=== PATIENT | male | born 2000 | race Caucasian/White ===

== ENCOUNTER 2022-04-04 19:56 | Emergency (ER) | payer OTHER, SELFPAY ==
[2022-04-04 20:13] VITALS: BP 159/83; PULSE 79; TEMP 36.8; O2SAT 98; BMI 24.4
--- NOTE | 2022-04-04 20:44 | ED_ITS ---
HPI - General Adult General Chief complaint: Chest Pain Stated complaint: Heart Palpatations Time Seen by Provider: 04/04/22 20:22 History of Present Illness HPI narrative: @1 yo yound man here with c/o over the last approximately week and a half has been getting episodes of a very hard heartbeats and rapid heart rate. Can feel little bit short of breath with this occurring and then pain in the chest with these times. Not reporting lightheadedness. Can occur at rest. No cough or c old sxs. no fever. no dyspeptic sxs. has had times where legs go numb. 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 accompanied by his father; currently living with parents. Does smoke cigarettes and marijuana. no dysuria but has noticed bad smelling urine lately. no foaming. Of concern is that josafat had cardiovascular disease with MT and stenting but sounds as though had some dysrhythmia prompting intervention and Ty has been told that he is to have rhythm evaluation by the time he is 21 - 24? Related Data Home Medications Medication Instructions Recorded Confirmed albuterol sulfate 90 mcg/actuation 2 puff inhalation Q4-6H PRN 04/06/22 04/06/22 aerosol inhaler Previous Rx's Medication Instructions Recorded escitalopram oxalate 10 mg tablet 10 mg PO QDAY #30 tabs 04/06/22 Allergies Allergy/AdvReac Type Severity Reaction Status Date / Time prednisone Allergy Unknown Verified 04/06/22 10:06 Review of Systems Status of ROS: Reports: 10 or more systems reviewed and unremarkable except as noted in History and below PFSH PFSH Family History (Updated 04/05/22 @ 16:18 by Radha Magana) Maternal Grandmother Breast cancer Diabetes Maternal Grandfather Stroke Heart disease Other Colon cancer Social History (Updated 04/06/22 @ 10:12 by Kwesi Glasgow MD) Narrative: Smoker 4-5 cigarettes per day Marijuana use Alcohol ingestion, 1-4 drinks/weeks Family History Problems: Family history of heart disease Maternal grandfather. Family history of CVA Maternal great grandfather, at age 52. Family history of colon cancer Grandmother, at age 70. Family history of breast cancer Grandmother. Family history of diabetes mellitus Grandmother, at age 20. Smoking Status: Current every day smoker Do you use any of these nicotine containing products: None Second hand tobacco smoke exposure: No How often do you have a drink containing alcohol: never How often do you have six or more drinks on one occasion: Never AUDIT-C Alcohol total score: 0 Non-prescribed substance use: marijuana (any form) Exam Narrative: Exam Narrative: Tall. Pleasant. Calm. Subtly anxious. Little flushed in his face. Well nourished. Skin is warm and dry. Well perfused peripherally. No extremity edema. Lungs are clear Neck supple without LA Oropharynx a little hyperemic consistent with cigarette smoking Cranial nerves two through 12 are intact. Cardiovascular with regular rate and rhythm, no murmur rub or john. normal PMI abdomen is flat soft and nontender. Const: Vital Signs, click to edit/add: Vital Signs - 24 hr 04/04/22 20:13 04/04/22 20:51 04/04/22 21:03 Temperature 98.3 F Pulse Rate [Left P ulse Oximeter] 79 76 Respiratory Rate 12 Blood Pressure [Ri ght Upper Arm] 159/83 H 142/88 H Pulse Oximetry 98 98 98 Oxygen Delivery Me thod Room Air Room Air 04/04/22 22:29 Temperature Pulse Rate [Left P ulse Oximeter] 72 Respiratory Rate 14 Blood Pressure [Ri ght Upper Arm] 142/88 H Pulse Oximetry 97 Oxygen Delivery Me thod Room Air Documenting provider has reviewed patient's vital signs: yes Course Vital Signs Vital signs: Initial Vital Signs Temperature 98.3 F 04/04/22 20:13 Temperature Source Temporal Artery Scan 04/04/22 20:13 Pulse Rate 79 04/04/22 20:13 Blood Pressure 159/83 H 04/04/22 20:13 Blood Pressure Mean 108 04/04/22 20:13 Blood Pressure Position Supine 04/04/22 20:13 Pulse Oximetry 98 04/04/22 20:13 Oxygen Delivery Method 04/04/22 20:13 Vital Signs Temperature 98.3 F 04/04/22 20:13 Pulse Rate 79 04/04/22 20:13 Blood Pressure 159/83 H 04/04/22 20:13 Pulse Oximetry 98 04/04/22 20:13 Oxygen Delivery Method 04/04/22 20:13 Temperature 98.3 F 04/04/22 20:13 Pulse Rate 72 04/04/22 22:29 Respiratory Rate 14 04/04/22 22:29 Blood Pressure 142/88 H 04/04/22 22:29 Pulse Oximetry 97 04/04/22 22:29 Oxygen Delivery Method 04/04/22 22:29 Medical Decision Making MDM Narrative Medical decision making narrative: I would suspect palpitations plus or minus exacerbation from anxiety. Can certainly initiate laboratory workout and monitor. I would anticipate placement of Holter monitor otherwise. Chest x-ray for rough evaluation of cardiac silhouette. cxr reviewed by me wnl labs normal as anticipated -- ua clear and utox pos for thc as expected. holter monitor placed by radiology. Lab Data Lab results reviewed: Yes I reviewed the patient's lab results Labs: Lab Results 04/04/22 04/04/22 04/04/22 Range/Units 20:47 20:47 20:47 WBC 6.02 (4.50-11.00) K/uL RBC 5.60 (4.30-5.90) m/uL Hgb 16.7 (13.5-17.5) gm/dL Hct 48.8 (37.0-53.0) % MCV 87 (80-100) fL MCH 30 (26-34) pg MCHC 34 (32-36) gm/dL RDW Coeff of Edwin 11.9 (11.5-15.5) % Plt Count 227 (140-440) K/uL Neut % (Auto) 56.0 (42.0-72.0) % Lymph % (Auto) 26.9 (20-44) % [place] % (Auto) 12.5 H (0.0-11.0) % Eos % (Auto) 3.5 (0.0-7.0) % Baso % (Auto) 0.8 (0.0-3.0) % Neut # (Auto) 3.37 (1.7-7.0) K/uL Lymph # (Auto) 1.62 (0.90-2.90) K/uL Hendry # (Auto) 0.80 (0.00-0.90) K/UL Eos # (Auto) 0.21 (0.00-0.50) K/uL Baso # (Auto) 0.05 (0.00-0.30) K/uL Abs Immat Gran (auto) 0.02 (0.00-0.30) K/uL Imm/Tot Granulo (auto) 0.3 % Sodium 140 (135-149) mmol/L Potassium 3.9 (3.6-5.1) mmol/L Chloride 105 (96-114) mmol/L Carbon Dioxide 25 (20-32) mmol/L BUN 11 (5-24) mg/dL Creatinine 0.7 (0.5-1.5) mg/dL Estimated Creat Clear 201.19 Estimated GFR 135 ml/min Glucose 107 (60-115) mg/dL Calcium 9.3 (8.4-10.6) mg/dL TSH 1.310 (0.270-4.20) uIU/mL Urine Color (Yellow) Urine Appearance (Clear) Urine pH (5.0-8.5) Ur Specific [place] (1.000-1.030) Urine Protein (Negative) Urine Glucose (UA) (Negative) Urine Ketones (Negative) Urine Blood (Negative) Urine Nitrite (Negative) Urine Bilirubin (Negative) Urine Urobilinogen (0.2-1.0) Ur Leukocyte Esterase (Negative) Urine RBC (0-2) Urine WBC (0-5) Ur Squamous Epith Cells (None-Few) Urine Bacteria (None) Urine Opiates Screen (Negative) Ur Oxycodone Screen (Negative) Urine Methadone Screen (Negative) Ur Propoxyphene Screen (Negative) Ur Barbiturates Screen (Negative) U Tricyclic Antidepress (Negative) Ur Phencyclidine Scrn (Negative) Ur Amphetamines Screen (Negative) U Methamphetamines Scrn (Negative) U Benzodiazepines Scrn (Negative) Urine Cocaine Screen (Negative) U Marijuana (THC) Screen (Negative) Ur Drug Screen Comment 04/04/22 04/04/22 Range/Units 21:35 21:35 WBC (4.50-11.00) K/uL RBC (4.30-5.90) m/uL Hgb (13.5-17.5) gm/dL Hct (37.0-53.0) % MCV (80-100) fL MCH (26-34) pg MCHC (32-36) gm/dL RDW Coeff of Edwin (11.5-15.5) % Plt Count (140-440) K/uL Neut % (Auto) (42.0-72.0) % Lymph % (Auto) (20-44) % Hendry % (Auto) (0.0-11.0) % Eos % (Auto) (0.0-7.0) % Baso % (Auto) (0.0-3.0) % Neut # (Auto) (1.7-7.0) K/uL Lymph # (Auto) (0.90-2.90) K/uL [place] # (Auto) (0.00-0.90) K/UL Eos # (Auto) (0.00-0.50) K/uL Baso # (Auto) (0.00-0.30) K/uL Abs Immat Gran (auto) (0.00-0.30) K/uL Imm/Tot Granulo (auto) % Sodium (135-149) mmol/L Potassium (3.6-5.1) mmol/L Chloride (96-114) mmol/L Carbon Dioxide (20-32) mmol/L BUN (5-24) mg/dL Creatinine (0.5-1.5) mg/dL Estimated Creat Clear Estimated GFR ml/min Glucose (60-115) mg/dL Calcium (8.4-10.6) mg/dL TSH (0.270-4.20) uIU/mL Urine Color Yellow (Yellow) Urine Appearance Clear (Clear) Urine pH 7.0 (5.0-8.5) Ur Specific [place] 1.010 (1.000-1.030) Urine Protein Negative (Negative) Urine Glucose (UA) Negative (Negative) Urine Ketones Negative (Negative) Urine Blood Negative (Negative) Urine Nitrite Negative (Negative) Urine Bilirubin Negative (Negative) Urine Urobilinogen 0.2 (0.2-1.0) Ur Leukocyte Esterase Negative (Negative) Urine RBC 0-2 (0-2) Urine WBC 0-2 (0-5) Ur Squamous Epith Cells None (None-Few) Urine Bacteria None (None) Urine Opiates Screen Negative (Negative) Ur Oxycodone Screen Negative (Negative) Urine Methadone Screen Negative (Negative) Ur Propoxyphene Screen Negative (Negative) Ur Barbiturates Screen Negative (Negative) U Tricyclic Antidepress Negative (Negative) Ur Phencyclidine Scrn Negative (Negative) Ur Amphetamines Screen Negative (Negative) U Methamphetamines Scrn Negative (Negative) U Benzodiazepines Scrn Negative (Negative) Urine Cocaine Screen Negative (Negative) U Marijuana (THC) Screen POSITIVE A* (Negative) Ur Drug Screen Comment See Note ECG Data Attestation: I personally reviewed and interpreted this ECG as follows: (Sinus rhythm rate of 71. No delta wave) Discharge Plan Discharge Clinical Impression: Palpitations Patient Disposition: Home w/ Parent or Adult Condition: Stable Additional Instructions: Be sure to stay well hydrated. I would still try to avoid alcohol at this time as well as stimulants. Do your best to quit smoking. Find a quit xochitl. You might discuss this further with your primary care provider on followup as there are prescriptions available as well. I am not sure what sort of funding is out there for quitplan anymore but see brochure on discharge. Turn in your Holter monitor as scheduled. I would anticipate these results being available in about a week. Can follow this up in primary care. This might be able to be communicated virtually if it is hard to get another [place] ointment. Return for persistent symptoms, increasing shortness of breath, chest pain, lightheadedness. This does not preclude you from doing exercise. A little heart pumping exercise daily does a body good. Prescriptions: No Action albuterol sulfate 90 mcg/actuation HFA aerosol inhaler 2 puff inhalation Q4-6H PRN escitalopram oxalate 10 mg tablet 10 mg PO QDAY Qty: 30 1RF Follow Up/Referrals: Kwesi Glasgow MD [Primary Care Provider] - Stand Alone Forms: Q Holdingst[employer] Info Instructions
[2022-04-04 20:51] VITALS: O2SAT 98
[2022-04-04 20:55] LABS: Basophils Absolute Auto 0.05 K/uL (0.00-0.30); Basophils Percent Auto 0.8 % (0.0-3.0); Eosinophils Absolute Auto 0.21 K/uL (0.00-0.50); Eosinophils Percent Auto 3.5 % (0.0-7.0); Hematocrit 48.8 % (37.0-53.0); Hemoglobin* 16.7 gm/dL (13.5-17.5); Immature Granulocytes Abs Auto 0.02 K/uL (0.00-0.30); Immature Granulocytes Pct Auto 0.3 %; Lymphocytes Absolute Auto 1.62 K/uL (0.90-2.90); Lymphocytes Percent Auto 26.9 % (20-44); Mean Corpuscular HGB Conc 34 gm/dL (32-36); Mean Corpuscular Hemoglobin 30 pg (26-34); Mean Corpuscular Volume 87 fL (80-100); Monocytes Percent Auto 12.5 % (0.0-11.0); Neutrophils Absolute Auto 3.37 K/uL (1.7-7.0); Platelet Count* 227 K/uL (140-440); RDW Coefficient of Variation % 11.9 % (11.5-15.5); White Blood Count* 6.02 K/uL (4.50-11.00)
[2022-04-04 21:03] VITALS: BP 142/88; PULSE 76; RESP 12; O2SAT 98
[2022-04-04 21:04] LABS: Slide Review Reflex No
[2022-04-04 21:05] LABS: Chloride* 105 mmol/L (96-114); Potassium* 3.9 mmol/L (3.6-5.1); Sodium* 140 mmol/L (135-149)
[2022-04-04 21:08] LABS: Carbon Dioxide* 25 mmol/L (20-32); Creatinine* 0.7 mg/dL (0.5-1.5); Est. Creatinine Clearance* 201.19; Estimated Glomerular Filt Rate 135 ml/min
[2022-04-04 21:09] LABS: Blood Urea Nitrogen* 11 mg/dL (5-24); Calcium* 9.3 mg/dL (8.4-10.6); Glucose* 107 mg/dL (60-115)
[2022-04-04 21:46] LABS: Appearance Urine Clear (Clear); Bilirubin Urine Negative (Negative); Blood Urine Negative (Negative); Color Urine Yellow (Yellow); Glucose Urine Negative (Negative); Ketones Urine Negative (Negative); Leukocyte Esterase Urine Negative (Negative); Nitrite Urine Negative (Negative); Protein Urine Negative (Negative); Urobilinogen Urine 0.2 (0.2-1.0)
[2022-04-04 21:53] LABS: Amphetamine Screen Urine Negative (Negative); Barbiturate Screen Urine Negative (Negative); Benzodiazepines Screen Urine Negative (Negative); Cocaine Screen Urine Negative (Negative); Methadone Screen Urine Negative (Negative); Methamphetamines Screen Urine Negative (Negative); Opiate Screen Urine Negative (Negative); Oxycodone Screen Urine Negative (Negative); Phencyclidine Screen Urine Negative (Negative); Tricyclic Antidepressant Urine Negative (Negative)
[2022-04-04 21:54] LABS: Cannabinoid Screen Urine POSITIVE (Negative)
[2022-04-04 22:05] LABS: RBC Urine 0-2 (0-2); WBC Urine 0-2 (0-5)
--- NOTE | 2022-04-04 22:10 | CRLHL7_ITS ---
For Patients: As a result of the Century Cures Act, medical imaging exams and procedure reports are released immediately into your electronic medical record. You may view this report before your referring provider. If you have questions, please contact your health care provider. INDICATION: Chest pain. TECHNIQUE: Chest 1 views. COMPARISON: None. FINDINGS: Cardiovascular and mediastinum: Cardiomediastinal silhouette is within normal limits. Left hilar opacities identified may be related to calcified lymph nodes or other hilar lesion. Holter monitor projecting at the left lower chest wall. Lungs and pleural spaces: Lungs are clear. No sign of pleural effusion. No pneumothorax. Bones and soft tissues: No significant findings. IMPRESSION: Left hilar density identified, may represent calcified lymph nodes, prominent vasculature or other soft tissue lesion at the left hilum. Dictated by Yolie Lucas MD @ 04/04/2022 10:54:05 PM (Electronically Signed)
[2022-04-04 22:29] VITALS: BP 142/88; PULSE 72; RESP 14; O2SAT 97
== END 2022-04-04 22:42 | disposition home or self-care (01) ==
PROVIDERS: Emergency Provider Family Medicine; PCP Family Medicine
DX: R00.2 Palpitations (principal); F17.210 Nicotine dependence, cigarettes, uncomplicated; Z82.49 Family history of ischemic heart disease and other diseases of the circulatory system; Z83.3 Family history of diabetes mellitus; Z88.8 Allergy status to other drugs, medicaments and biological substances; Z80.0 Family history of malignant neoplasm of digestive organs
CPT/HCPCS: 36415; 71045; 80048; 80306; 81001; 84443; 85025; 93005; 93225; 93226; 94761; 99284; 99285